=== PATIENT | female | born 1975 | race American Indian/Alaskan Native ===

== ENCOUNTER 2016-12-27 07:58 | Day surgery (SDC) | payer OTHER ==
[2016-12-27] MEDS ORDERED: NACL 0.9% 1000 ML 1,000 ML IV SCH (09:00)
--- NOTE | 2016-12-27 09:01 | Anesthesia Consultation ---
Anesthesia Consult and Med Hx Date of service: 12/27/16 - Airway Anesthetic Teeth Evaluation: Good, Caps (upper 2 ferguson caps) ROM Head & Neck: Adequate Mental/Hyoid Distance: Adequate Mallampati Class: Class II Intubation Access Assessment: Probably Good - Pre-Operative Health Status ASA Pre-Surgery Classification: ASA2 Proposed Anesthetic Plan: MAC - Pulmonary Hx Smoking: Yes (few cig/day x 20 years) - Gastrointestinal Hx Gastroesophageal Reflux Disease: Yes
--- NOTE | 2016-12-27 09:02 | Anesthesia Day of Surgery ---
Anesthesia Day of Surgery - Day of Surgery Patient Examined: Yes Patient H&P Reviewed: Yes Patient is NPO: Yes
[2016-12-27] MEDS ORDERED: WATER FOR IRRIG STERILE IR ONE (09:45)
[2016-12-27] MEDS ORDERED: DIPRIVAN 10 MG/ML IV ONE (10:24)
[2016-12-27] MEDS ORDERED: XYLOCAINE MPF 2% ONE (10:27)
--- NOTE | 2016-12-27 10:44 | Operative Report ---
Operative Report Operative Report: Date of procedure: 12/27/2016 Procedure: Esophagogastroduodenoscopy with multiple mucosal biopsies Attending physician: Danny Quiroz MD Supervisor Incising: Danny Quiroz MD Indication: Patient is a 41-year-old female who presented with history of persistent epigastric pain, nausea vomiting. She also has associated recurrent bloating with gas indigestion with heartburn and also dysphagia. An upper endoscopy is done to assess patient regarding the cause of her symptoms so that treatment may be directed based on the findings. Consent: Informed consent was obtained after advising the patient and family regarding nature of this procedure, its indications, potential benefits as well as possible complications including but not limited to bleeding perforation and adverse reaction to medication, infection as well as other cardiopulmonary complications. An informed written and verbal consent was then obtained after due opportunity was provided for questions and answers. Monitoring: Patient was monitored continuously with pulse oximetry and electrocardiographic recordings as well as blood pressure recordings. Vital signs remained stable throughout this procedure with no untoward events. Preoperative assessment: Patient was assessed immediately prior to this procedure for capacity to tolerate monitored anesthesia care and moderate sedation as well as general anesthesia. Patient's ASA classification is 2, Mallampati class is 2, Hyomental distance is 3. Instrument: Clickon video endoscope Medications: Propofol, given intravenously in divided doses. For details please refer to anesthesia records. Description of procedure: Patient was placed in the left lateral decubitus position after achieving sedation, the endoscope was introduced into the esophagus under direct vision. It was then advanced beyond the esophagus into the stomach and then beyond the stomach into the duodenum and to the second portion of the duodenum. It was subsequently withdrawn with careful inspection of all mucosal surfaces with the following findings. Findings: Patient had mild erosive esophagitis involving the distal esophagus. There was a small sliding hiatal hernia seen on entering into the stomach. The Z line was at 38 cm. There was some mild erythema in the gastric antrum. Biopsies of the antrum were obtained to rule out gastritis. The duodenum was normal to the second portion. Impression: Mild erosive esophagitis Small sliding hiatal hernia Gastric antral erythema. Plan: Continue treatment proton pump inhibitors. Follow pathology report from the gastric antral biopsies, and direct additional treatment based on the pathology. Patient is scheduled for further outpatient follow-up.
--- NOTE | 2016-12-27 10:45 | Discharge Summary ---
Short Stay Discharge Plan Activity: advance as tolerated Weight Bearing Status: Weight Bear as Tolerated Diet: regular (patient to follow-up in 2 weeks.) Follow up with: KATARINA STAPLETON, [Primary Care Provider] - 7 Days
[2016-12-27 11:02] VITALS: BP 154/88
--- NOTE | 2016-12-27 12:49 | Post Anesthesia Evaluation ---
- Post Anesthesia Evaluation Patient Participated: Yes Airway Patent: Yes Stable Respiratory Function: Yes Nausea/Vomiting: No Temp > 96.8F: Yes Pain Manageable: Yes Adequeate Hydration: Yes Anesthesia Complications: No
== END 2016-12-27 07:59 | disposition home or self-care (01) ==
LOC: GIO 07:58
PROVIDERS: ATTEND Internal Medicine Gastroenterology
DX: K29.50 Unspecified chronic gastritis without bleeding (principal); K20.8 Other esophagitis; K44.9 Diaphragmatic hernia without obstruction or gangrene; K21.9 Gastro-esophageal reflux disease without esophagitis; F17.210 Nicotine dependence, cigarettes, uncomplicated; F41.9 Anxiety disorder, unspecified; M19.90 Unspecified osteoarthritis, unspecified site; Z72.89 Other problems related to lifestyle; Z83.3 Family history of diabetes mellitus; Z82.49 Family history of ischemic heart disease and other diseases of the circulatory system
CPT/HCPCS: 43239; 88305; 88342; J2704; J7030